=== PATIENT | female | born 2005 ===

== ENCOUNTER 2024-12-28 17:13 | Emergency (ER) | payer SELFPAY ==
[~2024-12-28] VITALS: Ht 162.6 cm; Wt 52.0 kg
[2024-12-28 17:29] VITALS: BP 112/77; TEMP 36.9; O2SAT 100
[2024-12-28 17:33] VITALS: PULSE 98; RESP 20; O2SAT 98
== END 2024-12-28 23:21 | disposition left against medical advice (07) ==
LOC: ER 17:13
DX: K08.89 Other specified disorders of teeth and supporting structures (principal); Z53.21 Procedure and treatment not carried out due to patient leaving prior to being seen by health care provider